=== PATIENT | male | born 1975 | race African-American/Black ===

== ENCOUNTER 2017-08-06 23:18 | Emergency (ER) | payer OTHER, MEDICAID ==
[~2017-08-06] VITALS: Ht 172.7 cm; Wt 76.7 kg
[~2017-08-06 23:18] MED LIST: IMMUNE GLOBULIN IV
[2017-08-06 23:28] VITALS: BP 110/73
[2017-08-07] MEDS ORDERED: ONDANSETRON 4 MG ODT PO ONE (01:35)
[2017-08-07] MEDS ORDERED: DICYCLOMINE HCL LIQUID 20 MG, ALUMINUM HYD/MAG/SIMETHICONE 30 ML, LIDOCAINE VISCOUS 2% ... PO ONE ×3 (01:35)
[2017-08-07 01:45] LABS: BASOPHILS % (AUTO) 0.5 % (0.0-2.0); EOSINOPHILS % (AUTO) 0.8 % (0.0-4.0); HEMATOCRIT 42.3 % (36-52); HEMOGLOBIN 14.3 g/dL (12.0-18.0); LYMPHOCYTES # (AUTO) 2.1 K/uL (2.0-11.5); LYMPHOCYTES % (AUTO) 43.3 % (20.5-51.1); MEAN CORPUSCULAR HEMOGLOBIN 30 pg (27-31); MEAN CORPUSCULAR HGB CONC 34 g/dL (33-37); MEAN CORPUSCULAR VOLUME 88.2 fL (80-94); MONOCYTES # (AUTO) 0.4 K/uL (0.8-1.0); MONOCYTES % (AUTO) 9.1 % (1.7-9.3); NEUTROPHILS # (AUTO) 2.2 K/uL (1.8-7.7); NEUTROPHILS % (AUTO) 46.3 % (42.2-75.2); PLATELET COUNT (AUTO) 226 K/uL (140-450); RED BLOOD CELL COUNT(AUTO) 4.79 MIL/uL (4.20-6.10); RED CELL DISTRIBUTION WIDTH 13.1 % (11.6-13.7); WHITE BLOOD COUNT (AUTO) 4.8 K/uL (4.8-10.8)
[2017-08-07 02:04] LABS: ANION GAP 11.1 (8-16); CARBON DIOXIDE 23.7 mmol/L (21-32); CREATININE 0.9 mg/dL (0.7-1.3); POTASSIUM 3.8 mmol/L (3.5-5.1)
[2017-08-07 02:09] LABS: TOTAL BILIRUBIN 0.4 mg/dL (0.0-1.0)
[2017-08-07 02:10] LABS: ALBUMIN 3.1 g/dL (3.4-5.0)
[2017-08-07 02:51] VITALS: BP 119/74
== END 2017-08-07 02:51 | disposition home or self-care (01) ==
LOC: MED 23:18
DX: R11.2 Nausea with vomiting, unspecified (principal); R19.7 Diarrhea, unspecified; G62.9 Polyneuropathy, unspecified
CPT/HCPCS: 36415; 80053; 83690; 85025; 99284; S0119

== ENCOUNTER 2019-01-10 21:14 | Emergency (ER) | payer OTHER, MEDICAID ==
[~2019-01-10] VITALS: Ht 172.7 cm; Wt 72.6 kg
[2019-01-10 21:43] VITALS: BP 117/70
--- NOTE | 2019-01-10 22:02 | NUR ---
PT AMBULATED TO BED 09
--- NOTE | 2019-01-10 23:03 | NUR ---
43 Y/O MALE PRESENTS TO ED, C/O GENERAL BODY ACHE 8/10 PAIN SCALE. PT STATES SUFFERING FROM FALL AT APPROXIMATELY 2000 TODAY. PT STEPPED ON A HOLE AND FELL, DENIES ANY HEAD TRAUMA; STATES LANDING ON HIS BODY. C/O OF "WHIPLASH" DUE TO FALL. NO DEFORMITIES NOTED. NO SIGNS OF BLEEDING OR BRUISING ON BODY. PT ABLE TO AMBULATE WITH SLOW STEADY GAIT. PT ALERT AND ORIENTED X4. PT DENIES ANY N/V/D. PT STABLE. ERMD AWARE. WILL CONTINUE TO MONITOR.
--- NOTE | 2019-01-10 23:06 | NUR ---
DR CLOUD EVALUATING PT AT BEDSIDE
[2019-01-10] MEDS ORDERED: KETOROLAC 60 MG/2 ML VIAL IM ONE (23:25)
[2019-01-11 01:30] VITALS: BP 116/72
--- NOTE | 2019-01-11 01:30 | NUR ---
DISCHARGE PAPERS GIVEN TO PT. RX OF TYLENOL GIVEN. SIDE EFFECTS EXPLAINED. PT STATES 2/10 TOLLERABLE PAIN. INSTRUCTED TO F/U WITH PCP AND WHEN TO RETURN TO ER. PT VERBALLIZED UNDERSTANDING OF DC INSTRUCTIONS. ALL QEUSTIONS ANSWERED.
== END 2019-01-11 01:30 | disposition home or self-care (01) ==
LOC: MED 21:14
DX: S16.1XXA Strain of muscle, fascia and tendon at neck level, initial encounter (principal); Z79.899 Other long term (current) drug therapy; W17.2XXA Fall into hole, initial encounter; Y92.89 Other specified places as the place of occurrence of the external cause; Y93.01 Activity, walking, marching and hiking; Y99.8 Other external cause status
CPT/HCPCS: 71101; 72040; 96372; 99283; J1885